=== PATIENT | female | born 1985 | race Caucasian/White ===

== ENCOUNTER 2016-04-10 10:29 | Inpatient (IN) | payer OTHER ==
[2016-04-10 11:09] VITALS: BMI 39.6
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
[2016-04-10] MEDS ORDERED: MENTHOL/PHENOL 1 EACH UD MM PRN (17:33)
[2016-04-10] MEDS ORDERED: IBUPROFEN 400 MG TABLET (FP) PO PRN (17:33)
[2016-04-10] MEDS ORDERED: MAGNESIUM CITRATE 300 ML BOTTLE PO PRN (17:33)
[2016-04-10] MEDS ORDERED: P-EPHED 60MG/TRIPROLIDI 2.5MG TABLET PO PRN (17:33)
[2016-04-10] MEDS ORDERED: LOPERAMIDE HCL 2 MG CAPSULE PO PRN (17:33)
[2016-04-10] MEDS ORDERED: MAG HYDROX/AL HYDROX/SIMETH 30 ML UNIT-DOSE CUP PO PRN (17:33)
[2016-04-10] MEDS ORDERED: NICOTINE POLACRILEX 2 MG GUM BUC PRN (17:33)
[2016-04-10] MEDS ORDERED: MAGNESIUM HYDROX 2400MG/30ML ORAL SUSPENSION 30 ML CUP PO PRN (17:33)
[2016-04-10] MEDS ORDERED: guaiFENesin/D-METHORPHAN HB 10 ML UNIT-DOSE CUPS PO PRN (17:33)
[2016-04-10] MEDS ORDERED: TUBERCULIN PPD 5 TU/0.1ML VIAL ID ONE (19:13)
[2016-04-10] MEDS: THIAMINE HCL 100 MG TABLET (FP) PO SCH (21:31)
[2016-04-10 23:17] LABS: URINE APPEARANCE CLOUDY; URINE BILIRUBIN NEGATIVE (NEGATIVE); URINE BLOOD NEGATIVE (NEGATIVE); URINE COLOR YELLOW; URINE GLUCOSE (UA) NEGATIVE (NEGATIVE); URINE KETONE NEGATIVE (NEGATIVE); URINE LEUK ESTERASE NEGATIVE (NEGATIVE); URINE NITRITE NEGATIVE (NEGATIVE); URINE PROTEIN NEGATIVE (NEGATIVE); URINE UROBILINOGEN NEGATIVE E.U./dl (0.2-1.0)
[2016-04-11] MEDS: METHADONE HCL 40 MG DISPERSABLE TABLET PO SCH (06:34)
[2016-04-11] MEDS: ASPIRIN 81 MG CHEWABLE TABLETS PO SCH (09:39)
[2016-04-11] MEDS: PRENATAL VITAMINS W/ FOLIC ACID TABLET (FP) PO SCH (09:40)
[2016-04-11] MEDS: NICOTINE 21 MG/24 HOURS TOPICAL PATCH TD SCH (09:40)
[2016-04-11 11:28] LABS: MCH 29.3 pg (25.7-33.7); MEAN CELL VOLUME 88.7 fl (80-96); MEAN PLT VOLUME 11.4 fl (7.5-11.1); PLATELET COUNT 162 K/MM3 (134-434); RDW 13.7 % (11.6-15.6); WHITE BLOOD COUNT 8.2 K/mm3 (4.0-10.0)
[2016-04-11] MEDS ORDERED: PNEUMOC 13-VAL CONJ-DIP CRM/PF 0.5 ML DISP.SYRIN IM ONE (12:00)
[2016-04-11] MEDS ORDERED: PNEUMOCOCCAL 23 VACCINE 0.5 ML VIAL IM ONE (12:00)
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
[2016-04-11 12:18] LABS: ALBUMIN 3.3 g/dl (3.4-5.0); ALK PHOS 101 U/L (45-117); ANION GAP 6 (8-16); BILIRUBIN,TOTAL 0.4 mg/dL (0.2-1.0); CALCIUM 8.7 mg/dL (8.5-10.1); CO2 26 mmol/L (21-32); CREATININE 0.7 mg/dL (0.55-1.02); GLUCOSE,RANDOM 104 mg/dL (74-106); SGOT/AST 24 U/L (15-37); SGPT/ALT 34 U/L (12-78); TOT PROT 6.8 g/dl (6.4-8.2)
[2016-04-11 12:25] LABS: HIV 1 & 2 AB NEGATIVE; HIV 1 AGp24 NEGATIVE
[2016-04-11] MEDS: diphenhydrAMINE HCL 50 MG CAPSULE PO PRN (21:24)
[2016-04-11] MEDS: THIAMINE HCL 100 MG TABLET (FP) PO SCH (21:24)
[2016-04-11] MEDS: ARIPiprazole 5 MG TABLET (FP) PO SCH (21:24)
[2016-04-12] MEDS: METHADONE HCL 40 MG DISPERSABLE TABLET PO SCH (06:39)
[2016-04-12] MEDS: ASPIRIN 81 MG CHEWABLE TABLETS PO SCH (10:12)
[2016-04-12] MEDS: FLUoxetine HCL 20 MG CAPSULE (FP) PO SCH (10:12)
[2016-04-12] MEDS: PRENATAL VITAMINS W/ FOLIC ACID TABLET (FP) PO SCH (10:12)
[2016-04-12] MEDS: NICOTINE 21 MG/24 HOURS TOPICAL PATCH TD SCH (10:12)
[2016-04-12] MEDS: THIAMINE HCL 100 MG TABLET (FP) PO SCH (21:13)
[2016-04-12] MEDS: ARIPiprazole 5 MG TABLET (FP) PO SCH (21:13)
[2016-04-12] MEDS: diphenhydrAMINE HCL 50 MG CAPSULE PO PRN (21:14)
[2016-04-13] MEDS: METHADONE HCL 40 MG DISPERSABLE TABLET PO SCH (06:29)
[2016-04-13] MEDS: ASPIRIN 81 MG CHEWABLE TABLETS PO SCH (09:40)
[2016-04-13] MEDS: NICOTINE 21 MG/24 HOURS TOPICAL PATCH TD SCH (09:41)
[2016-04-13] MEDS: PRENATAL VITAMINS W/ FOLIC ACID TABLET (FP) PO SCH (09:41)
[2016-04-13] MEDS: FLUoxetine HCL 20 MG CAPSULE (FP) PO SCH (09:41)
[2016-04-13] MEDS: THIAMINE HCL 100 MG TABLET (FP) PO SCH (21:03)
[2016-04-13] MEDS: ARIPiprazole 5 MG TABLET (FP) PO SCH (21:03)
[2016-04-13] MEDS: diphenhydrAMINE HCL 50 MG CAPSULE PO PRN ×2 (21:05→23:24)
[2016-04-14] MEDS: METHADONE HCL 40 MG DISPERSABLE TABLET PO SCH (06:46)
[2016-04-14] MEDS: ASPIRIN 81 MG CHEWABLE TABLETS PO SCH (09:56)
[2016-04-14] MEDS: PRENATAL VITAMINS W/ FOLIC ACID TABLET (FP) PO SCH (09:56)
[2016-04-14] MEDS: FLUoxetine HCL 20 MG CAPSULE (FP) PO SCH (09:57)
[2016-04-14] MEDS: NICOTINE 21 MG/24 HOURS TOPICAL PATCH TD SCH (09:57)
[2016-04-14] MEDS: ARIPiprazole 5 MG TABLET (FP) PO SCH (21:06)
[2016-04-14] MEDS: THIAMINE HCL 100 MG TABLET (FP) PO SCH (21:06)
[2016-04-14] MEDS: diphenhydrAMINE HCL 50 MG CAPSULE PO PRN ×2 (21:07→22:37)
[2016-04-15] MEDS: METHADONE HCL 40 MG DISPERSABLE TABLET PO SCH (06:16)
[2016-04-15] MEDS: ASPIRIN 81 MG CHEWABLE TABLETS PO SCH (10:03)
[2016-04-15] MEDS: FLUoxetine HCL 20 MG CAPSULE (FP) PO SCH (10:03)
[2016-04-15] MEDS: PRENATAL VITAMINS W/ FOLIC ACID TABLET (FP) PO SCH (10:03)
[2016-04-15] MEDS: NICOTINE 21 MG/24 HOURS TOPICAL PATCH TD SCH (10:04)
[2016-04-15] MEDS: ARIPiprazole 5 MG TABLET (FP) PO SCH (21:15)
[2016-04-15] MEDS: THIAMINE HCL 100 MG TABLET (FP) PO SCH (21:15)
[2016-04-16] MEDS: METHADONE HCL 40 MG DISPERSABLE TABLET PO SCH (06:45)
[2016-04-16] MEDS: PRENATAL VITAMINS W/ FOLIC ACID TABLET (FP) PO SCH (10:25)
[2016-04-16] MEDS: NICOTINE 21 MG/24 HOURS TOPICAL PATCH TD SCH (10:25)
[2016-04-16] MEDS: FLUoxetine HCL 20 MG CAPSULE (FP) PO SCH (10:25)
[2016-04-16] MEDS: ASPIRIN 81 MG CHEWABLE TABLETS PO SCH (10:25)
[2016-04-16] MEDS: THIAMINE HCL 100 MG TABLET (FP) PO SCH (21:16)
[2016-04-16] MEDS: ARIPiprazole 5 MG TABLET (FP) PO SCH (21:16)
[2016-04-16] MEDS: diphenhydrAMINE HCL 50 MG CAPSULE PO PRN ×2 (21:16→22:26)
[2016-04-17] MEDS: METHADONE HCL 40 MG DISPERSABLE TABLET PO SCH (06:55)
[2016-04-17] MEDS: PRENATAL VITAMINS W/ FOLIC ACID TABLET (FP) PO SCH (10:00)
[2016-04-17] MEDS: FLUoxetine HCL 20 MG CAPSULE (FP) PO SCH (10:00)
[2016-04-17] MEDS: NICOTINE 21 MG/24 HOURS TOPICAL PATCH TD SCH (10:01)
[2016-04-17] MEDS ORDERED: ONDANSETRON *ODT* 4 MG TABLET SL PRN (10:59)
--- NOTE | 2016-04-17 11:02 | PN ---
[facility] Progress Note Note: NAUSEA,ZOFRAN SL 4 MGS Q 6 HRS PRN ORDERED,CLOSE MONITORING
--- NOTE | 2016-04-17 14:58 | PN ---
Psychiatric Progress Note Vital Signs: Vital Signs Period Temp Pulse Resp BP Sys/Jeffries Pulse Ox Last 24 Hr 97.7 F-97.8 F 65-85 18-18 117-118/75-75 Date of Session: 04/17/16 Chief Complaint:: Sleep is my big problem." HPI: Patient addressed Opioid and Anxiolytic dependence comorbid with MDD, Bordeline personality disorder. ROS: Significant for Hep C. Current Medications: Active Medications Generic Name Dose Route Start Last Admin Trade Name Freq PRN Reason Stop Dose Admin Acetaminophen 650 mg 04/10/16 17:33 Tylenol - PO Q4H PRN PAIN Al Hydroxide/Mg Hydroxide 30 ml 04/10/16 17:33 Mylanta Oral Suspension - PO Q6H PRN DYSPEPSIA Aripiprazole 5 mg 04/11/16 22:00 04/16/16 21:16 Abilify PO 5 mg HS LESLY Administration Diphenhydramine HCl 50 mg 04/10/16 22:00 04/16/16 22:26 Benadryl - PO 50 mg HSMR1 PRN Administration INSOMNIA Eucalyptus/Menthol/Phenol/Sorbitol 1 each 04/10/16 17:33 Cepastat Lozenge - MM Q4H PRN SORE THROAT Fluoxetine HCl 40 mg 04/18/16 10:00 Prozac - PO DAILY LESLY Guaifenesin 10 ml 04/10/16 17:33 Robitussin Dm - PO Q6H PRN COUGH Loperamide HCl 4 mg 04/10/16 17:33 Imodium - PO Q6H PRN DIARRHEA Magnesium Citrate 300 ml 04/10/16 17:33 Citroma - PO Q48H PRN CONSTIPATION Magnesium Hydroxide 30 ml 04/10/16 17:33 Milk Of Magnesia - PO DAILY PRN CONSTIPATION Methadone HCl 80 mg 04/17/16 06:30 04/17/16 06:55 Dolophine - PO 80 mg DAILY@0600 LESLY Administration Nicotine 21 mg 04/11/16 10:00 04/17/16 10:01 Nicoderm Patch - TD Not Given DAILY LESLY Nicotine Polacrilex 2 mg 04/10/16 17:33 Nicorette Gum - BUC Q2H PRN NICOTINE REPLACEMENT RX Ondansetron HCl 4 mg 04/17/16 10:59 04/17/16 12:13 Zofran Odt - SL 4 mg Q6H PRN Administration NAUSEA AND/OR VOMITING Multivit/Folic Acid/Iron 1 tab 04/11/16 10:00 04/17/16 10:00 Vitamins (Sjr) - PO 1 tab DAILY LESLY Administration Pseudoephedrine/Triprolidine 1 combo 04/10/16 17:33 Actifed - PO TID PRN NASAL CONGESTION Thiamine HCl 100 mg 04/10/16 22:00 04/16/16 21:16 Vitamin B1 - PO 100 mg HS LESLY Administration Trazodone HCl 50 mg 04/17/16 22:00 Desyrel - PO HS LESLY Current Side Effect: No Lab tests ordered: No Lab tests reviewed: Yes Provider note:: Patient was evaluated today and chart was revuewed.Psychotropic medications has been discussed with the patient. She addressed ongoing sleeping difficulties(inability to fall asleep and interrupted sleep pattern),states that she used to medicate herself with drugs to help with insomnia.Patient also reports that she was on Prozac 60 mg po daily,but stopped taking it one month before admission.Properties of Trazodone has been disussd with the patient including side effects,benefits adn dose adjustment.Trazodone 50 mg po hs will be started tonight,Prozac 20 mg po daily will be adjusted to 40 mg po daily.Supportive therapy privided. Total face to face time:: 30 Mental Status Exam - Mental Status Exam Alert and Oriented to: Time, Place, Person Cognitive Function: Grossly Intact Patient Appearance: Well Groomed Mood: Sad, Anxious Affect: Labile Patient Behavior: Cooperative Speech Pattern: Clear Voice Loudness: Normal Thought Process: Goal Oriented Thought Disorder: Not Present Hallucinations: Denies Suicidal Ideation: Denies Homicidal Ideation: Denies Insight/Judgement: Fair Sleep: Difficulty falling asleep Appetite: Good Muscle strength/Tone: Normal Gait/Station: Normal Psychiatric Treatment Plan - Problem List (1) Borderline personality disorder Current Visit: Yes (2) Cannabis dependence Current Visit: Yes (3) MDD (major depressive disorder), recurrent episode, moderate Current Visit: Yes (4) Methadone maintenance therapy patient Current Visit: Yes Comment: 80 mg last dose 04/11/16 verification pending (5) Nicotine dependence Current Visit: Yes Qualifiers: Nicotine product type: cigarettes Substance use status: uncomplicated Qualified Code(s): F17.210 - Nicotine dependence, cigarettes, uncomplicated (6) Opioid dependence with withdrawal Current Visit: Yes (7) Hepatitis C antibody test positive Current Visit: Yes Comment: treated
[2016-04-17] MEDS: traZODone HCL 50 MG TABLET (FP) PO SCH (21:02)
[2016-04-17] MEDS: ARIPiprazole 5 MG TABLET (FP) PO SCH (21:02)
[2016-04-17] MEDS: THIAMINE HCL 100 MG TABLET (FP) PO SCH (21:02)
[2016-04-18] MEDS: METHADONE HCL 40 MG DISPERSABLE TABLET PO SCH (06:26)
[2016-04-18] MEDS: FLUoxetine HCL 20 MG CAPSULE (FP) PO SCH (10:08)
[2016-04-18] MEDS: NICOTINE 21 MG/24 HOURS TOPICAL PATCH TD SCH (10:08)
[2016-04-18] MEDS: PRENATAL VITAMINS W/ FOLIC ACID TABLET (FP) PO SCH (10:09)
[2016-04-18] MEDS: traZODone HCL 50 MG TABLET (FP) PO SCH (21:11)
[2016-04-18] MEDS: ARIPiprazole 5 MG TABLET (FP) PO SCH (21:11)
[2016-04-18] MEDS: THIAMINE HCL 100 MG TABLET (FP) PO SCH (21:12)
[2016-04-19] MEDS: METHADONE HCL 40 MG DISPERSABLE TABLET PO SCH (06:25)
[2016-04-19] MEDS: PRENATAL VITAMINS W/ FOLIC ACID TABLET (FP) PO SCH (09:57)
[2016-04-19] MEDS: FLUoxetine HCL 20 MG CAPSULE (FP) PO SCH (09:57)
[2016-04-19] MEDS: NICOTINE 21 MG/24 HOURS TOPICAL PATCH TD SCH (09:58)
[2016-04-19] MEDS: traZODone HCL 50 MG TABLET (FP) PO SCH (21:45)
[2016-04-19] MEDS: ARIPiprazole 5 MG TABLET (FP) PO SCH (21:45)
[2016-04-19] MEDS: THIAMINE HCL 100 MG TABLET (FP) PO SCH (21:45)
[2016-04-20] MEDS: METHADONE HCL 40 MG DISPERSABLE TABLET PO SCH (06:56)
[2016-04-20] MEDS: PRENATAL VITAMINS W/ FOLIC ACID TABLET (FP) PO SCH (09:55)
[2016-04-20] MEDS: FLUoxetine HCL 20 MG CAPSULE (FP) PO SCH (09:55)
[2016-04-20] MEDS: NICOTINE 21 MG/24 HOURS TOPICAL PATCH TD SCH (09:56)
[2016-04-20] MEDS: traZODone HCL 50 MG TABLET (FP) PO SCH (21:10)
[2016-04-20] MEDS: ARIPiprazole 5 MG TABLET (FP) PO SCH (21:10)
[2016-04-20] MEDS: THIAMINE HCL 100 MG TABLET (FP) PO SCH (21:10)
[2016-04-21] MEDS: METHADONE HCL 40 MG DISPERSABLE TABLET PO SCH (06:21)
[2016-04-21] MEDS: PRENATAL VITAMINS W/ FOLIC ACID TABLET (FP) PO SCH (09:53)
[2016-04-21] MEDS: FLUoxetine HCL 20 MG CAPSULE (FP) PO SCH (09:53)
[2016-04-21] MEDS: NICOTINE 21 MG/24 HOURS TOPICAL PATCH TD SCH (09:58)
[2016-04-21] MEDS: ARIPiprazole 5 MG TABLET (FP) PO SCH (21:09)
[2016-04-21] MEDS: traZODone HCL 50 MG TABLET (FP) PO SCH (21:09)
[2016-04-21] MEDS: THIAMINE HCL 100 MG TABLET (FP) PO SCH (21:09)
[2016-04-22] MEDS: METHADONE HCL 40 MG DISPERSABLE TABLET PO SCH (06:23)
[2016-04-22] MEDS: PRENATAL VITAMINS W/ FOLIC ACID TABLET (FP) PO SCH (09:57)
[2016-04-22] MEDS: FLUoxetine HCL 20 MG CAPSULE (FP) PO SCH (09:58)
[2016-04-22] MEDS: NICOTINE 21 MG/24 HOURS TOPICAL PATCH TD SCH (09:58)
[2016-04-22] MEDS: THIAMINE HCL 100 MG TABLET (FP) PO SCH (21:03)
[2016-04-22] MEDS: ARIPiprazole 5 MG TABLET (FP) PO SCH (21:03)
[2016-04-22] MEDS: traZODone HCL 50 MG TABLET (FP) PO SCH (21:04)
[2016-04-23] MEDS: METHADONE HCL 40 MG DISPERSABLE TABLET PO SCH (06:15)
[2016-04-23] MEDS: PRENATAL VITAMINS W/ FOLIC ACID TABLET (FP) PO SCH (09:48)
[2016-04-23] MEDS: FLUoxetine HCL 20 MG CAPSULE (FP) PO SCH (09:49)
[2016-04-23] MEDS: ACETAMINOPHEN 325 MG TABLET (FP) PO PRN (09:49)
[2016-04-23] MEDS: NICOTINE 21 MG/24 HOURS TOPICAL PATCH TD SCH (09:49)
[2016-04-23] MEDS: ARIPiprazole 5 MG TABLET (FP) PO SCH (21:06)
[2016-04-23] MEDS: THIAMINE HCL 100 MG TABLET (FP) PO SCH (21:06)
[2016-04-23] MEDS: traZODone HCL 50 MG TABLET (FP) PO SCH (21:06)
[2016-04-24] MEDS: METHADONE HCL 40 MG DISPERSABLE TABLET PO SCH (06:14)
[2016-04-24] MEDS: FLUoxetine HCL 20 MG CAPSULE (FP) PO SCH (09:49)
[2016-04-24] MEDS: PRENATAL VITAMINS W/ FOLIC ACID TABLET (FP) PO SCH (09:49)
[2016-04-24] MEDS: NICOTINE 21 MG/24 HOURS TOPICAL PATCH TD SCH (09:50)
[2016-04-24] MEDS: ARIPiprazole 5 MG TABLET (FP) PO SCH (21:07)
[2016-04-24] MEDS: THIAMINE HCL 100 MG TABLET (FP) PO SCH (21:07)
[2016-04-24] MEDS: traZODone HCL 50 MG TABLET (FP) PO SCH (21:07)
[2016-04-25] MEDS ORDERED: METHADONE HCL 10 MG TABLET ONE (05:59)
[2016-04-25] MEDS ORDERED: METHADONE HCL 40 MG DISPERSABLE TABLET ONE (05:59)
[2016-04-25] MEDS ORDERED: METHADONE HCL 40 MG DISPERSABLE TABLET PO SCH ×2 (06:00)
[2016-04-25] MEDS: METHADONE 40 MG, METHADONE 30 MG PO SCH (06:27)
[2016-04-25] MEDS: FLUoxetine HCL 20 MG CAPSULE (FP) PO SCH (09:44)
[2016-04-25] MEDS: PRENATAL VITAMINS W/ FOLIC ACID TABLET (FP) PO SCH (09:44)
[2016-04-25] MEDS: ACETAMINOPHEN 325 MG TABLET (FP) PO PRN (09:45)
[2016-04-25] MEDS: NICOTINE 21 MG/24 HOURS TOPICAL PATCH TD SCH (09:46)
[2016-04-25] MEDS: traZODone HCL 50 MG TABLET (FP) PO SCH (21:08)
[2016-04-25] MEDS: ARIPiprazole 5 MG TABLET (FP) PO SCH (21:08)
[2016-04-25] MEDS: THIAMINE HCL 100 MG TABLET (FP) PO SCH (21:08)
[2016-04-25] MEDS ORDERED: PT OWN MED DRAWER 7, Y5N ONE (23:31)
[2016-04-26] MEDS ORDERED: METHADONE HCL 10 MG TABLET ONE (06:09)
[2016-04-26] MEDS ORDERED: METHADONE HCL 40 MG DISPERSABLE TABLET ONE (06:10)
[2016-04-26] MEDS: METHADONE 40 MG, METHADONE 30 MG PO SCH (06:46)
[2016-04-26] MEDS: PRENATAL VITAMINS W/ FOLIC ACID TABLET (FP) PO SCH (10:02)
[2016-04-26] MEDS: FLUoxetine HCL 20 MG CAPSULE (FP) PO SCH (10:02)
[2016-04-26] MEDS: NICOTINE 21 MG/24 HOURS TOPICAL PATCH TD SCH (10:02)
--- NOTE | 2016-04-26 15:58 | PN ---
Psychiatric Progress Note Vital Signs: Vital Signs Period Temp Pulse Resp BP Sys/Jeffries Pulse Ox Last 24 Hr 97.8 F 65 18-18 113/76 Date of Session: 04/26/16 Chief Complaint:: "Sleep is still a big problem and also having mood instability." HPI: Patient addressed Cannabis and Opioid dependence comorbid with Bordeline personality disorder. Current Medications: Active Medications Generic Name Dose Route Start Last Admin Trade Name Freq PRN Reason Stop Dose Admin Acetaminophen 650 mg 04/10/16 17:33 04/25/16 09:45 Tylenol - PO 650 mg Q4H PRN Administration PAIN Al Hydroxide/Mg Hydroxide 30 ml 04/10/16 17:33 04/18/16 11:28 Mylanta Oral Suspension - PO 30 ml Q6H PRN Administration DYSPEPSIA Aripiprazole 10 mg 04/26/16 22:00 Abilify PO HS LESLY Carbamide Perox/Anhydrous Glycerin 5 drop 04/26/16 22:00 Debrox - AD 05/01/16 21:59 BID LESLY Diphenhydramine HCl 50 mg 04/10/16 22:00 04/16/16 22:26 Benadryl - PO 50 mg HSMR1 PRN Administration INSOMNIA Eucalyptus/Menthol/Phenol/Sorbitol 1 each 04/10/16 17:33 Cepastat Lozenge - MM Q4H PRN SORE THROAT Fluoxetine HCl 40 mg 04/18/16 10:00 04/26/16 10:02 Prozac - PO 40 mg DAILY LESLY Administration Guaifenesin 10 ml 04/10/16 17:33 Robitussin Dm - PO Q6H PRN COUGH Hydroxyzine Pamoate 50 mg 04/26/16 15:48 Vistaril - PO Q4H PRN ANXIETY Loperamide HCl 4 mg 04/10/16 17:33 Imodium - PO Q6H PRN DIARRHEA Magnesium Citrate 300 ml 04/10/16 17:33 04/23/16 12:23 Citroma - PO 300 ml Q48H PRN Administration CONSTIPATION Magnesium Hydroxide 30 ml 04/10/16 17:33 04/22/16 09:59 Milk Of Magnesia - PO 30 ml DAILY PRN Administration CONSTIPATION Methadone HCl 40 mg/ Methadone 70 mg 04/25/16 06:00 04/26/16 06:46 HCl 30 mg PO 05/01/16 05:59 70 mg DAILY@0600 LESLY Administration Nicotine 21 mg 04/11/16 10:00 04/26/16 10:02 Nicoderm Patch - TD Not Given DAILY LESLY Nicotine Polacrilex 2 mg 04/10/16 17:33 Nicorette Gum - BUC Q2H PRN NICOTINE REPLACEMENT RX Ondansetron HCl 4 mg 04/17/16 10:59 04/17/16 12:13 Zofran Odt - SL 4 mg Q6H PRN Administration NAUSEA AND/OR VOMITING Multivit/Folic Acid/Iron 1 tab 04/11/16 10:00 04/26/16 10:02 Vitamins (Sjr) - PO 1 tab DAILY LESLY Administration Pseudoephedrine/Triprolidine 1 combo 04/10/16 17:33 Actifed - PO TID PRN NASAL CONGESTION Thiamine HCl 100 mg 04/10/16 22:00 04/25/16 21:08 Vitamin B1 - PO 100 mg HS LESLY Administration Trazodone HCl 100 mg 04/26/16 22:00 Desyrel - PO HS LESLY Current Side Effect: No Lab tests ordered: No Lab tests reviewed: Yes Provider note:: PAtient was evaluated today due to ongoing sleeping difficulties and mood instability.medacations,treatment plan has been discussed with the patient . Properties of Abilify and Trazodone has been discussed with the patient including side effects and benefits and dose adjustment.TRazodone 50 mg po hs will be adjusted to 100 mg po hs and Abilify 5 mg po hs will be adjusted to 10 mg po hs. Supportive therapy provided. Total face to face time:: 30 Mental Status Exam - Mental Status Exam Alert and Oriented to: Time, Place, Person Cognitive Function: Grossly Intact Patient Appearance: Unkempt Mood: Nervous Affect: Mood Congruent, Labile Patient Behavior: Cooperative Speech Pattern: Clear Voice Loudness: Normal Thought Process: Goal Oriented Thought Disorder: Not Present Hallucinations: Denies Suicidal Ideation: Denies Homicidal Ideation: Denies Insight/Judgement: Fair Sleep: Difficulty falling asleep Appetite: Good Muscle strength/Tone: Normal Gait/Station: Normal Psychiatric Treatment Plan - Problem List (1) Borderline personality disorder Current Visit: Yes (2) Cannabis dependence Current Visit: Yes (3) MDD (major depressive disorder), recurrent episode, moderate Current Visit: Yes (4) Methadone maintenance therapy patient Current Visit: Yes Comment: 80 mg last dose 04/11/16 verification pending (5) Nicotine dependence Current Visit: Yes Qualifiers: Nicotine product type: cigarettes Substance use status: uncomplicated Qualified Code(s): F17.210 - Nicotine dependence, cigarettes, uncomplicated (6) Opioid dependence with withdrawal Current Visit: Yes (7) Hepatitis C antibody test positive Current Visit: Yes Comment: treated
[2016-04-26] MEDS: hydrOXYzine PAMOATE 50 MG CAPSULE (FP) PO PRN (18:39)
[2016-04-26] MEDS: THIAMINE HCL 100 MG TABLET (FP) PO SCH (21:11)
[2016-04-26] MEDS: CARBAMIDE PEROXIDE 6.5% OTIC 15 ML BOTTLE AD SCH (21:12)
[2016-04-26] MEDS: traZODone HCL 100 MG TABLET (FP) PO SCH (21:13)
[2016-04-26] MEDS: ARIPiprazole 10 MG TABLET PO SCH (21:14)
[2016-04-27] MEDS ORDERED: METHADONE HCL 40 MG DISPERSABLE TABLET ONE (03:02)
[2016-04-27] MEDS ORDERED: METHADONE HCL 10 MG TABLET ONE (03:02)
[2016-04-27] MEDS: METHADONE 40 MG, METHADONE 30 MG PO SCH (06:29)
[2016-04-27] MEDS: hydrOXYzine PAMOATE 50 MG CAPSULE (FP) PO PRN ×3 (06:30→22:04)
[2016-04-27] MEDS: FLUoxetine HCL 20 MG CAPSULE (FP) PO SCH (09:42)
[2016-04-27] MEDS: PRENATAL VITAMINS W/ FOLIC ACID TABLET (FP) PO SCH (09:42)
[2016-04-27] MEDS: NICOTINE 21 MG/24 HOURS TOPICAL PATCH TD SCH (09:42)
[2016-04-27] MEDS: CARBAMIDE PEROXIDE 6.5% OTIC 15 ML BOTTLE AD SCH ×2 (09:43→21:08)
[2016-04-27] MEDS ORDERED: PT OWN MED DRAWER 7, Y5N ONE (20:30)
[2016-04-27] MEDS: THIAMINE HCL 100 MG TABLET (FP) PO SCH (21:06)
[2016-04-27] MEDS: ARIPiprazole 10 MG TABLET PO SCH (21:08)
[2016-04-27] MEDS: traZODone HCL 100 MG TABLET (FP) PO SCH (21:08)
[2016-04-28] MEDS ORDERED: METHADONE HCL 40 MG DISPERSABLE TABLET ONE (03:18)
[2016-04-28] MEDS ORDERED: METHADONE HCL 10 MG TABLET ONE (03:18)
[2016-04-28] MEDS: METHADONE 40 MG, METHADONE 30 MG PO SCH (06:38)
[2016-04-28] MEDS: ACETAMINOPHEN 325 MG TABLET (FP) PO PRN ×2 (06:41→12:23)
[2016-04-28] MEDS: CARBAMIDE PEROXIDE 6.5% OTIC 15 ML BOTTLE AD SCH ×2 (09:46→21:05)
[2016-04-28] MEDS: PRENATAL VITAMINS W/ FOLIC ACID TABLET (FP) PO SCH (09:47)
[2016-04-28] MEDS: FLUoxetine HCL 20 MG CAPSULE (FP) PO SCH (09:47)
[2016-04-28] MEDS: NICOTINE 21 MG/24 HOURS TOPICAL PATCH TD SCH (09:47)
[2016-04-28] MEDS: hydrOXYzine PAMOATE 50 MG CAPSULE (FP) PO PRN (12:23)
[2016-04-28] MEDS: traZODone HCL 100 MG TABLET (FP) PO SCH (21:05)
[2016-04-28] MEDS: ARIPiprazole 10 MG TABLET PO SCH (21:05)
[2016-04-28] MEDS: THIAMINE HCL 100 MG TABLET (FP) PO SCH (21:05)
[2016-04-29] MEDS ORDERED: METHADONE HCL 10 MG TABLET ONE (03:10)
[2016-04-29] MEDS ORDERED: METHADONE HCL 40 MG DISPERSABLE TABLET ONE (03:10)
[2016-04-29] MEDS: METHADONE 40 MG, METHADONE 30 MG PO SCH (06:19)
[2016-04-29] MEDS: PRENATAL VITAMINS W/ FOLIC ACID TABLET (FP) PO SCH (09:55)
[2016-04-29] MEDS: CARBAMIDE PEROXIDE 6.5% OTIC 15 ML BOTTLE AD SCH ×2 (09:56→21:15)
[2016-04-29] MEDS: NICOTINE 21 MG/24 HOURS TOPICAL PATCH TD SCH (09:56)
[2016-04-29] MEDS: FLUoxetine HCL 20 MG CAPSULE (FP) PO SCH (09:56)
[2016-04-29 13:01] LABS: URINE APPEARANCE SLCLOUDY; URINE BILIRUBIN NEGATIVE (NEGATIVE); URINE BLOOD 1+ (NEGATIVE); URINE COLOR YELLOW; URINE GLUCOSE (UA) NEGATIVE (NEGATIVE); URINE KETONE NEGATIVE (NEGATIVE); URINE LEUK ESTERASE TRACE (NEGATIVE); URINE NITRITE NEGATIVE (NEGATIVE); URINE PROTEIN NEGATIVE (NEGATIVE); URINE UROBILINOGEN NEGATIVE E.U./dl (0.2-1.0)
[2016-04-29 13:04] LABS: URINE HYALINE CAST 3 /lpf; URINE MUCUS RARE; URINE RBC 1 /hpf (0-3); URINE WBC 2 /hpf (3-5)
[2016-04-29] MEDS: ARIPiprazole 10 MG TABLET PO SCH (21:15)
[2016-04-29] MEDS: THIAMINE HCL 100 MG TABLET (FP) PO SCH (21:15)
[2016-04-30] MEDS ORDERED: METHADONE HCL 10 MG TABLET ONE (05:49)
[2016-04-30] MEDS ORDERED: METHADONE HCL 40 MG DISPERSABLE TABLET ONE (05:50)
[2016-04-30] MEDS: METHADONE 40 MG, METHADONE 30 MG PO SCH (06:26)
[2016-04-30 06:53] VITALS: BP 114/78; PULSE 57; TEMP 97.3
[2016-04-30] MEDS: PRENATAL VITAMINS W/ FOLIC ACID TABLET (FP) PO SCH (09:53)
[2016-04-30] MEDS: FLUoxetine HCL 20 MG CAPSULE (FP) PO SCH (09:53)
[2016-04-30] MEDS: NICOTINE 21 MG/24 HOURS TOPICAL PATCH TD SCH (09:54)
[2016-04-30] MEDS: CARBAMIDE PEROXIDE 6.5% OTIC 15 ML BOTTLE AD SCH ×2 (09:54→21:52)
[2016-04-30] MEDS: hydrOXYzine PAMOATE 50 MG CAPSULE (FP) PO PRN (17:51)
--- NOTE | 2016-04-30 18:47 | PN ---
Psychiatric Progress Note Vital Signs: Vital Signs Period Temp Pulse Resp BP Sys/Jeffries Pulse Ox Last 24 Hr 97.3 F 57 16-18 114/78 Date of Session: 04/30/16 Chief Complaint:: Discharge note HPI: Patient address Opioid,Alcohol,Cannabis dependence comorbid with Bordeline Personality,MDD. ROS: Significant for Hep C carrier. Current Medications: Active Medications Generic Name Dose Route Start Last Admin Trade Name Freq PRN Reason Stop Dose Admin Acetaminophen 650 mg 04/10/16 17:33 04/28/16 12:23 Tylenol - PO 650 mg Q4H PRN Administration PAIN Al Hydroxide/Mg Hydroxide 30 ml 04/10/16 17:33 04/18/16 11:28 Mylanta Oral Suspension - PO 30 ml Q6H PRN Administration DYSPEPSIA Aripiprazole 10 mg 04/26/16 22:00 04/29/16 21:15 Abilify PO 10 mg HS LESLY Administration Carbamide Perox/Anhydrous Glycerin 5 drop 04/26/16 22:00 04/30/16 09:54 Debrox - AD 05/01/16 21:59 Not Given BID LESLY Diphenhydramine HCl 50 mg 04/10/16 22:00 04/16/16 22:26 Benadryl - PO 50 mg HSMR1 PRN Administration INSOMNIA Eucalyptus/Menthol/Phenol/Sorbitol 1 each 04/10/16 17:33 Cepastat Lozenge - MM Q4H PRN SORE THROAT Fluoxetine HCl 40 mg 04/18/16 10:00 04/30/16 09:53 Prozac - PO 40 mg DAILY LESLY Administration Guaifenesin 10 ml 04/10/16 17:33 Robitussin Dm - PO Q6H PRN COUGH Hydroxyzine Pamoate 50 mg 04/26/16 15:48 04/30/16 17:51 Vistaril - PO 50 mg Q4H PRN Administration ANXIETY Loperamide HCl 4 mg 04/10/16 17:33 Imodium - PO Q6H PRN DIARRHEA Magnesium Citrate 300 ml 04/10/16 17:33 04/23/16 12:23 Citroma - PO 300 ml Q48H PRN Administration CONSTIPATION Magnesium Hydroxide 30 ml 04/10/16 17:33 04/22/16 09:59 Milk Of Magnesia - PO 30 ml DAILY PRN Administration CONSTIPATION Methadone HCl 40 mg/ Methadone 70 mg 04/25/16 06:00 04/30/16 06:26 HCl 30 mg PO 05/01/16 05:59 70 mg DAILY@0600 LESLY Administration Nicotine 21 mg 04/11/16 10:00 04/30/16 09:54 Nicoderm Patch - TD Not Given DAILY LESLY Nicotine Polacrilex 2 mg 04/10/16 17:33 Nicorette Gum - BUC Q2H PRN NICOTINE REPLACEMENT RX Ondansetron HCl 4 mg 04/17/16 10:59 04/17/16 12:13 Zofran Odt - SL 4 mg Q6H PRN Administration NAUSEA AND/OR VOMITING Multivit/Folic Acid/Iron 1 tab 04/11/16 10:00 04/30/16 09:53 Vitamins (Sjr) - PO 1 tab DAILY LESLY Administration Pseudoephedrine/Triprolidine 1 combo 04/10/16 17:33 Actifed - PO TID PRN NASAL CONGESTION Thiamine HCl 100 mg 04/10/16 22:00 04/29/16 21:15 Vitamin B1 - PO 100 mg HS LESLY Administration Current Side Effect: No Lab tests ordered: No Lab tests reviewed: Yes Provider note:: The patient will complete this program tomorrow 05/01/16.She has met her treatment goals and will continue to address her issues on outpatient basis.Patient continues to find that Abilify 10 mg po daily and Prozac 40 mg po daily help to reduce her anxiety,depression,insomnia and. mood instability.Scripts for 30 days supply provided. Patient is stable for discharge tomorrow 05/01/16. Total face to face time:: 30 Mental Status Exam - Mental Status Exam Alert and Oriented to: Time, Place, Person Cognitive Function: Fair Patient Appearance: Well Groomed Mood: Euthymic Affect: Mood Congruent, Normal Range Patient Behavior: Cooperative Speech Pattern: Clear Voice Loudness: Normal Thought Process: Goal Oriented Thought Disorder: Not Present Hallucinations: Denies Suicidal Ideation: Denies Homicidal Ideation: Denies Insight/Judgement: Fair Sleep: Fair Appetite: Fair Muscle strength/Tone: Normal Gait/Station: Normal Psychiatric Treatment Plan - Problem List (1) Borderline personality disorder Current Visit: Yes (2) Cannabis dependence Current Visit: Yes (3) MDD (major depressive disorder), recurrent episode, moderate Current Visit: Yes (4) Methadone maintenance therapy patient Current Visit: Yes Comment: 80 mg last dose 04/11/16 verification pending (5) Nicotine dependence Current Visit: Yes Qualifiers: Nicotine product type: cigarettes Substance use status: uncomplicated Qualified Code(s): F17.210 - Nicotine dependence, cigarettes, uncomplicated (6) Opioid dependence with withdrawal Current Visit: Yes (7) Hepatitis C antibody test positive Current Visit: Yes Comment: treated
[2016-04-30] MEDS: ARIPiprazole 10 MG TABLET PO SCH (21:51)
[2016-04-30] MEDS: THIAMINE HCL 100 MG TABLET (FP) PO SCH (21:51)
[2016-05-01] MEDS ORDERED: METHADONE HCL 10 MG TABLET ONE (05:49)
[2016-05-01] MEDS ORDERED: METHADONE HCL 40 MG DISPERSABLE TABLET ONE (05:50)
[2016-05-01] MEDS ORDERED: METHADONE 40 MG, METHADONE 30 MG PO SCH (06:00)
== END 2016-05-01 06:45 | disposition home or self-care (01) | DRG 772 ==
LOC: YASAS 10:29 → Y3E 17:25
PROVIDERS: ADMIT Psychiatry & Neurology Psychiatry; ATTEND Psychiatry & Neurology Psychiatry
PROC: HZ42ZZZ Group Counseling for Substance Abuse Treatment, Cognitive-Behavioral (ICD-10-PCS; principal; 2016-04-10)
DX: F11.20 Opioid dependence, uncomplicated (principal); F12.20 Cannabis dependence, uncomplicated; F17.210 Nicotine dependence, cigarettes, uncomplicated; F60.3 Borderline personality disorder; F33.9 Major depressive disorder, recurrent, unspecified; B18.2 Chronic viral hepatitis C; Z86.73 Personal history of transient ischemic attack (TIA), and cerebral infarction without residual deficits
CPT/HCPCS: 36415; 80053; 81003; 81015; 85027; 86593; 87389; 90732; 93005; 93010; G0009